=== PATIENT | male | born 1990 | race Caucasian/White ===

== ENCOUNTER 2017-10-21 17:06 | Emergency (ER) | payer OTHER ==
[~2017-10-21] VITALS: Ht 170.2 cm; Wt 97.5 kg
[2017-10-21 17:50] LABS: ABSOLUTE NEUTROPHILS 5.7 thou/uL (1.4-8.2); BASOPHILS 0.9 % (0.0-2.0); EOSINOPHILS 2.1 % (0.0-3.0); HEMATOCRIT 41.8 % (42.0-52.0); HEMOGLOBIN 13.8 gm/dL (14.0-18.0); LYMPHOCYTES 33.6 % (24.0-44.0); MCH 30.2 pg (26.0-34.0); MCV 91.4 fL (80.0-100.0); MONOCYTES 9.3 % (1.0-8.0); PLATELET COUNT 277 thou/uL (150-400); POLYS 54.1 % (36.0-66.0); RBC 4.58 mil/uL (4.50-6.00); WBC 10.6 thou/uL (4.0-11.0)
[2017-10-21 17:59] LABS: CALCIUM 9.5 mg/dL (8.5-10.1); CREATININE 0.8 mg/dL (0.7-1.3); POTASSIUM 4.1 mmol/L (3.5-5.1)
[2017-10-21 18:07] LABS: ALBUMIN 3.8 g/dL (3.4-5.0); TOTAL BILIRUBIN 0.2 mg/dL (<0.1-1.0); TOTAL PROTEIN 7.4 g/dL (6.4-8.2)
[2017-10-21 18:20] LABS: URINE BILIRUBIN NEGATIVE (Negative); URINE BLOOD NEGATIVE (Negative); URINE CLARITY CLEAR; URINE COLOR YELLOW; URINE GLUCOSE-RANDOM* NEGATIVE (Negative); URINE KETONES NEGATIVE (Negative); URINE LEUKOCYTES NEGATIVE (Negative); URINE NITRITE NEGATIVE (Negative); URINE PROTEIN (DIPSTICK) NEGATIVE (Negative); URINE SPECIFIC GRAVITY 1.015 (1.005-1.035); URINE UROBILINOGEN 0.2 E.U./dl (0.2-1.0)
[2017-10-21] MEDS ORDERED: LEVSIN0.125 MG PO (19:23)
[2017-10-21] MEDS ORDERED: ULTRAM 50MG TAB50 MG PO (19:40)
== END 2017-10-21 19:43 | disposition home or self-care (01) ==
LOC: ER 17:06
PROVIDERS: Physician Assistant
DX: R10.9 Unspecified abdominal pain (principal); F17.210 Nicotine dependence, cigarettes, uncomplicated

== ENCOUNTER 2018-07-27 15:34 | Emergency (ER) | payer OTHER ==
[~2018-07-27] VITALS: Ht 170.2 cm; Wt 83.9 kg
[~2018-07-27 15:34] MED LIST: LEVSIN0.125 MG PO; ULTRAM 50MG TAB50 MG PO
[2018-07-27 15:36] VITALS: BP 126/73
[2018-07-27] MEDS ORDERED: ERYTHROMYCIN E3.5 G3 OPHTHALMIC (16:09)
[2018-07-27] MEDS ORDERED: NORCO 5-325 TA1 EACH PO (16:09)
== END 2018-07-27 16:21 | disposition home or self-care (01) ==
LOC: ER 15:34
DX: S05.01XA Injury of conjunctiva and corneal abrasion without foreign body, right eye, initial encounter (principal); F17.210 Nicotine dependence, cigarettes, uncomplicated; X58.XXXA Exposure to other specified factors, initial encounter; Y93.89 Activity, other specified; Y92.89 Other specified places as the place of occurrence of the external cause; Y99.8 Other external cause status

== ENCOUNTER 2019-04-14 07:49 | Emergency (ER) | payer OTHER ==
[~2019-04-14] VITALS: Ht 167.6 cm; Wt 90.7 kg
[~2019-04-14 07:49] MED LIST changes: +ERYTHROMYCIN E3.5 G3 OPHTHALMIC; +NORCO 5-325 TA1 EACH PO
[2019-04-14] MEDS ORDERED: SENNA-DOCUSATE1 EAC1 PO (09:23)
[2019-04-14] MEDS ORDERED: IBUPROFEN 600600 M1 PO (09:23)
[2019-04-14] MEDS ORDERED: NORCO 5-325 TA1 EAC1 PO (09:23)
[2019-04-14] MEDS ORDERED: TOBRAMYCIN SULFA5 M1 OPHTHALMIC (09:23)
[2019-04-14 09:31] VITALS: BP 107/68
== END 2019-04-14 09:31 | disposition home or self-care (01) ==
LOC: ER 07:49
DX: T15.01XA Foreign body in cornea, right eye, initial encounter (principal); F17.210 Nicotine dependence, cigarettes, uncomplicated; W22.8XXA Striking against or struck by other objects, initial encounter; Y93.89 Activity, other specified; Y92.89 Other specified places as the place of occurrence of the external cause; Y99.0 Civilian activity done for income or pay

== ENCOUNTER 2019-11-20 16:15 | Emergency (ER) | payer OTHER ==
[~2019-11-20] VITALS: Ht 170.2 cm; Wt 104.3 kg
[~2019-11-20 16:15] MED LIST changes: +IBUPROFEN 600600 M1 PO; +NORCO 5-325 TA1 EAC1 PO; +SENNA-DOCUSATE1 EAC1 PO; +TOBRAMYCIN SULFA5 M1 OPHTHALMIC
[2019-11-20] MEDS ORDERED: KEFLEX500 M1 PO (18:32)
[2019-11-20] MEDS ORDERED: NORCO 5-325 TA1 EAC1 PO (18:52)
[2019-11-20 19:04] VITALS: BP 135/80
== END 2019-11-20 19:02 | disposition home or self-care (01) ==
LOC: ER 16:15
DX: S61.012A Laceration without foreign body of left thumb without damage to nail, initial encounter (principal); S60.412A Abrasion of right middle finger, initial encounter; W45.8XXA Other foreign body or object entering through skin, initial encounter; Y93.89 Activity, other specified; Y92.89 Other specified places as the place of occurrence of the external cause; Y99.8 Other external cause status